=== PATIENT | male | born 1970 | race Caucasian/White ===

== ENCOUNTER 2017-11-16 19:13 | Emergency (ER) | payer OTHER ==
[2017-11-16 20:18] VITALS: BP 129/87
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
== END 2017-11-16 21:05 | disposition home or self-care (01) ==
LOC: UCCORT 19:13
DX: S60.221A Contusion of right hand, initial encounter (principal); S60.511A Abrasion of right hand, initial encounter; W23.0XXA Caught, crushed, jammed, or pinched between moving objects, initial encounter; Y93.E9 Activity, other interior property and clothing maintenance; Y92.9 Unspecified place or not applicable; Z88.0 Allergy status to penicillin
CPT/HCPCS: 99211; G0463

== ENCOUNTER 2018-11-01 15:49 | Emergency (ER) | payer OTHER ==
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
[2018-11-01 16:30] VITALS: BP 136/92
== END 2018-11-01 17:10 | disposition home or self-care (01) ==
LOC: UCCORT 15:49
DX: S93.402A Sprain of unspecified ligament of left ankle, initial encounter (principal); S90.02XA Contusion of left ankle, initial encounter; E11.9 Type 2 diabetes mellitus without complications; Z88.0 Allergy status to penicillin; Z91.018 Allergy to other foods; X58.XXXA Exposure to other specified factors, initial encounter; Y92.009 Unspecified place in unspecified non-institutional (private) residence as the place of occurrence of the external cause
CPT/HCPCS: 99211; G0463

== ENCOUNTER 2019-04-27 15:47 | Emergency (ER) | payer OTHER ==
--- OUTSIDE RECORDS SUMMARY | 2019-04-27 15:59 | XMS REPORT | Summary of Care ---
:1970 Author Organization [facility] Address [address] [place] [address] Care Team Providers Name Role Phone Bairon Orantes MD Primary Care Provider Reason for Visit Reason Comments Diabetes Encounter Details Date Type Department Care Team Description 04/07/2019 Office Visit [facility] Bairon Orantes MD Diabetes mellitus with microalbuminuria (HCC) (Primary Dx); Practice [address] [facility] Other specified hypothyroidism; [address] [place] [address] Essential (primary) [place] [address] [phone] Allergies Active Allergy Reactions Severity Noted Date Comments Mushrooms Swelling 08/26/2016 Penicillins Hives 08/26/2016 documented as of this encounter (statuses as of 04/07/2019) Medications Medication Sig Dispensed Refills Start Date End Date Status Blood Glucose Monitor 1 Each by Does not 1 Device 0 09/09/2016 Active Software Does not apply route apply Device DIRECTED. Diabetes. Brand: insurance preferred Glucose Blood In Vitro 1 Strip by In 100 Strip 5 09/09/2016 Active Strip Vitro route DIRECTED. DX: Diabetes Lancets Does not apply by Does not apply 100 Each 5 09/09/2016 Active Misc route. Test Blood Glucose time(s) A DAY Dx: Diabetes fluticasone (FLONASE) Harrison 2 Sprays in 1 Bottle 1 06/05/2018 Active 50 MCG/ACT Nasal nose DAILY. Suspension metFORMIN HCL 1000 MG Take 1 Tab by 180 Tab 0 03/30/2019 Active Oral TabIndications: mouth TWICE DAILY. Type 2 diabetes mellitus without complication, without long-term current use of insulin (HCC) levothyroxine Take 1 Tab by 90 Tab 0 03/30/2019 Active (SYNTHROID) 150 MCG mouth BEFORE Oral Tab BREAKFAST. Rosuvastatin Calcium Take 1 Tab by 90 Tab 1 03/30/2019 Active (CRESTOR) 10 MG Oral mouth DAILY. TabIndications: Type 2 diabetes mellitus without complication, without long-term current use of insulin (HCC) Dulaglutide Inject 0.5 mL 1.96 mL 2 04/07/2019 Active (TRULICITY) 0.75 beneath the skin MG/0.5ML Subcutaneous EVERY 7 DAYS. Solution Pen-injector lisinopril (PRINIVIL, Take 1 Tab by 90 Tab 0 04/07/2019 Active ZESTRIL) 10 MG Oral mouth DAILY. Tab documented as of this encounter (statuses as of 04/07/2019) Active Problems Problem Noted Date Diabetes mellitus with microalbuminuria 04/07/2019 Type 2 diabetes mellitus without complication 08/26/2016 Hypothyroidism High blood cholesterol level Essential (primary) hypertension documented as of this encounter (statuses as of 04/07/2019) Resolved Problems Problem Noted Date Resolved Date Diabetes mellitus type 2, without complication 08/26/2016 08/26/2016 documented as of this encounter (statuses as of 04/07/2019) Social History Tobacco Use Types Packs/Day Years Used Date Never Smoker Smokeless Tobacco: Never Used Alcohol Use Drinks/Week oz/Week Comments Yes occ Sex Assigned at Date Recorded Not on file Job Start Date Occupation Industry Not on file Not on file Not on file Travel History Travel Start Travel End No recent travel history available. documented as of this encounter Last Filed Vital Signs Vital Sign Reading Time Taken Comments Blood Pressure 144/92 04/07/2019 7:45 AM EDT Pulse 79 04/07/2019 7:45 AM EDT Temperature - - Respiratory Rate - - Oxygen Saturation - - Inhaled Oxygen Concentration - - Weight 90.7 kg (200 lb) 04/07/2019 7:45 AM EDT Height 172.7 cm (5' 8") 04/07/2019 7:45 AM EDT Body Mass Index 30.41 04/07/2019 7:45 AM EDT documented in this encounter Progress Notes Bairon Orantes MD - 04/07/2019 7:20 AM EDT PATIENT: Marino Florence : 1970 DATE OF SERVICE: 04/07/2019 CHIEF COMPLAINT: Chief Complaint Patient presents with Diabetes Subjective HISTORY OF PRESENT ILLNESS: Marino Florence is a 49-y.o. male. To the [facility] clinic to follow up his diabetes and hypothyroid. At last visit mentioned he wasnot compliant as forgot to take meds His a1c 10.7 TSH 40 and microalbumin + He has been back on the meds for a week and is helping him remember He occasionally forgets his night time metformin. Takes statin in AM His allergy symptoms better so not taking the meds He notes when he started on the thyroid med he feels his fuse is shorter but it historically gets better when on the med regularly . . Past Medical History: Diagnosis Date DDD (degenerative disc disease), lumbar Diabetes mellitus, type 2 (HCC) Essential (primary) hypertension High blood cholesterol level Hypothyroidism Family History Problem Relation Age of Onset Cancer Father cancer Diabetes Father Cancer Son brain Current Outpatient Medications Medication Sig Blood Glucose Monitor Software Does not apply Device 1 Each by Does not apply route DIRECTED. Diabetes. Brand: insurance preferred fluticasone (FLONASE) 50 MCG/ACT Nasal Suspension Harrison 2 Sprays in nose DAILY. Glucose Blood In Vitro Strip 1 Strip by In Vitro route DIRECTED. DX: Diabetes Lancets Does not apply Misc by Does not apply route. Test Blood Glucose time(s) A DAY Dx: Diabetes levothyroxine (SYNTHROID) 150 MCG Oral Tab Take 1 Tab by mouth BEFORE BREAKFAST. metFORMIN HCL 1000 MG Oral Tab Take 1 Tab by mouth TWICE DAILY. Rosuvastatin Calcium (CRESTOR) 10 MG Oral Tab Take 1 Tab by mouth DAILY. No current facility-administered medications for this visit. Allergies Allergen Reactions Mushrooms Swelling Penicillins Hives Social History Socioeconomic History Marital status: Spouse name: Not on file Number of children: Not on file Years of education: Not on file Highest education level: Not on file Occupational History Not on file Social Needs Financial resource strain: Not on file Food insecurity: Worry: Not on file Inability: Not on file Transportation needs: Medical: Not on file Non-medical: Not on file Tobacco Use Smoking status: Never Smoker Smokeless tobacco: Never Used Substance and Sexual Activity Alcohol use: Yes Comment: occ Drug use: No Sexual activity: Yes Partners: Female Lifestyle Physical activity: Days per week: Not on file Minutes per session: Not on file Stress: Not on file Relationships Social connections: Talks on phone: Not on file Gets together: Not on file Attends temple service: Not on file Active member of club or organization: Not on file Attends meetings of clubs or organizations: Not on file Relationship status: Not on file Intimate partner violence: Fear of current or ex partner: Not on file Emotionally abused: Not on file Physically abused: Not on file Forced sexual activity: Not on file Other Topics Concern Back Care Not Asked Bike Helmet Not Asked Blood Transfusions Not Asked Caffeine Concern Not Asked Exercise Not Asked Hobby Hazards Not Asked International Travel Not Asked Service Not Asked Occupational Exposure Not Asked Seat Belt Not Asked Self-Exams Not Asked Sleep Concern Not Asked Special Diet Not Asked Stress Concern Not Asked Weight Concern Not Asked Social History Narrative Not on file REVIEW OF SYSTEMS: ROS Objective PHYSICAL EXAM: VITALS: BP (!) 144/92 | Pulse 79 | Ht 5' 8" (1.727 m) | Wt 200 lb (90.7 kg) | BMI 30.41 kg/m Body mass index is 30.41 kg/m. Physical Exam Constitutional: No distress. Cardiovascular: Normal rate and regular rhythm. Pulmonary/Chest: Effort normal. No respiratory distress. Musculoskeletal: He exhibits no edema. Psychiatric: He has a normal mood and affect. Vitals reviewed. ASSESSMENT / IMPRESSION: ICD-9-CM ICD-10-CM 1. Diabetes mellitus with microalbuminuria (HCC) a1c of 10 may not be corrected with just metformin . We discussed options . Since he forgets to take meds 1 x a week trulicity may be best for him Warned of side effects 250.40 E11.29 791.0 R80.9 2. Other specified hypothyroidism his thyroid being off may have played a role in high a1c too. Cant really change dose due to long half life . See back couple months 244.8 E03.8 3. Essential (primary) hypertension 401.9 I10 BP usually good but due to + microalbumin will start isabell Plan Refusing flu shot Author: Bairon Orantes MD 04/07/2019 08:31 documented in this encounter Plan of Treatment Name Type Priority Associated Diagnoses Order Schedule GLYCOHEMOGLOBIN A1C Lab Routine Diabetes mellitus with Expected: microalbuminuria (HCC) 04/07/2019 (Approximate), Expires: 04/07/2020 COMPREHENSIVE METABOLIC Lab Routine Diabetes mellitus with Expected: PANEL microalbuminuria (HCC) 04/07/2019 (Approximate), Expires: 04/07/2020 THYROID STIMULATING Lab Routine Other specified Expected: HORMONE hypothyroidism 04/07/2019 (Approximate), Expires: 04/07/2020 Health Maintenance Due Date Last Done Comments Diabetic Eye Exam 1970 PNEUMOCOCCAL 0-64 YRS (1 of 02/10/1974 1 - PPSV23) DEPRESSION SCREENING 1980 HIV SCREENING 02/10/1983 FOOT EXAM 09/09/2017 09/09/2016, 09/09/2016 COLONOSCOPY SCREENING 02/10/2018 ZOSTER IMMUNIZATION SERIES 02/10/2018 (1 of 2) INFLUENZA VACCINE (#1) 2019 HEMOGLOBIN A1C 06/26/2019 03/26/2019, 07/18/2017, 04/02/2017, Additional history exists URINE MICROALBUMIN 03/26/2020 03/26/2019, 07/18/2017, 09/09/2016 LIPID DISORDER SCREENING 03/30/2020 03/30/2019, 03/26/2019, 12/06/2016, Additional history exists HPV IMMUNIZATION SERIES Aged Out No longer eligible based on patient's age to complete this topic MENINGOCOCCAL VACCINE IMM Aged Out No longer eligible based on patient's age to complete this topic documented as of this encounter Goals Goal Patient Goal Associated Recent Patient-Stated? Author Type Problems Progress Blood Pressure Blood Pressure 144/92 No Marisol, < 140/90 (04/07/2019 Sonia, 7:45 AM EDT) Note: This is an individualized treatment (blood pressure) goal for Marino Florence: Displayed above (on the left) is your goal for blood pressure control. Your most recent blood pressure is also shown above, on the right. You should try to achieve blood pressures that are lower than your goal listed above (on the left). Glycohemoglobin A1c < 7.0 Diabetes 10.7 (03/26/2019 6:38 No Sonia Damon, AM EDT) Note: This is an individualized treatment (diabetes control, HgbA1C) goal for Marino Florence: Displayed above is your progress towards your HgbA1C goal. Your goal is shown above (on the left); your most recent HgbA1C is shown on the right. Note that lower numbers are better. Weight loss vs. 18 mo Lifestyle 9 (04/07/2019 7:45 AM No Sonia Damon MD max (lbs) >= 10 EDT) Note: This is an individualized lifestyle goal for Marino Florence: Your body mass index (BMI) is more than 30. You should lose weight. A reasonable starting goal is to lose 10 pounds. Displayed above is how many pounds you have lost thus far towards your 10 pound weight loss goal. Keep immunizations current Lifestyle No Sonia Damon MD Note: This is an individualized lifestyle goal for Marino Florence: Please be sure to keep up-to-date on recommended immunizations. For example, this would include a yearly influenza vaccine. Immunization status can be seen by looking at the Health Maintenance sections of your [facility], Plan of Care, and any After Visit Summaries. Take all prescribed medications as Self-management No Sonia Damon MD directed Note: This is an individualized self-management goal for Marino Florence: Please take all prescribed medications as directed. 1. Do not skip doses. If you cannot afford your medications, talk with your doctor. 2. Use a pill reminder system such as a pill box if needed. Your pharmacist can help you with this. 3. Contact your Pharmacy 5 days before your medication runs out. If you cannot take your medications for any reasons, talk with your doctor. 4. Please bring all of your medication bottles and inhalers (or a list of all your medications/inhalers) with you to every visit. Potential barriers to meeting all of your care plan goals will continue to be addressed on an ongoing basis. documented as of this encounter Results Not on filedocumented in this encounter Visit Diagnoses Diagnosis Diabetes mellitus with microalbuminuria (HCC) - Primary Other specified hypothyroidism Essential (primary) hypertension Unspecified essential hypertension documented in this encounter
[2019-04-27 16:04] VITALS: BP 123/85
[2019-04-27] MEDS ORDERED: Albuterol HFA INHALER* 8 gm MDI INH ONE (16:32)
--- NOTE | 2019-04-27 16:40 | UC ---
Respiratory Complaint HPI - HPI Summary HPI Summary: The patient is a 49-year-old diabetic that has been ill for greater than a week and a half. Initially his symptoms started up with nasal congestion and postnasal drip. His symptoms rapidly worsened and the cough seems to be in his chest now. He has some chest tightness and wheezing. The patient does have a history of bronchitis and has used inhalers in the past. He denies any high fever or shaking chills. He denies any chest pain or shortness. He has had no nausea vomiting or diarrhea. He does have a mild sore throat. - History of Current Complaint Chief Complaint: UCRespiratory Stated Complaint: URI Time Seen by Provider: 04/27/19 16:26 Hx Obtained From: Patient Onset/Duration: Gradual Onset, Lasting Weeks Timing: Constant Severity Initially: Mild Severity Currently: Moderate Pain Intensity: 2 Pain Scale Used: 0-10 Numeric Character: Cough: Productive Aggravating Factors: Nothing Alleviating Factors: Nothing Associated Signs And Symptoms: Positive: Wheezing, Nasal Congestion, Sinus Discomfort Related History: Similar Episode/Dx as: - bronchitis - Allergies/Home Medications Allergies/Adverse Reactions: Allergies Allergy/AdvReac Type Severity Reaction Status Date / Time Penicillins Allergy Hives Verified 04/27/19 16:04 MUSHROOMS Allergy FACIAL Uncoded 11/01/18 16:30 EDEMA AND REDNESS Home Medications: Home Medications Dulaglutide [Trulicity] 0.75 mg PO DAILY 04/27/19 [History Confirmed 04/27/19] Lisinopril TAB* [Prinivil TAB 10 MG*] 10 mg PO DAILY 04/27/19 [History Confirmed 04/27/19] PMH/Surg Hx/FS Hx/Imm Hx Previously Healthy: Yes Endocrine History: Diabetes, Dyslipidemia Cardiovascular History: Hypertension Respiratory History: Bronchitis Other History Of: Negative For: HIV, Hepatitis B, Hepatitis C, Anticoagulant Therapy - Surgical History Surgical History: Yes Surgery Procedure, Year, and Place: APPENDECTOMY 2007, [facility] [place] [facility]. LEFT KNEE, 1993, [facility]. LEFT THUMB, [facility], 2001. LEFT TRIGGER THUMB SX --2013 - Family History Known Family History: Positive: Hypertension Negative: Cardiac Disease - Social History Alcohol Use: Rare Alcohol Amount: 2-3 PER WEEK Substance Use Type: None Smoking Status (MU): Never Smoked Tobacco Have You Smoked in the Last Year: No - Immunization History Most Recent Influenza Vaccination: none Review of Systems All Other Systems Reviewed And Are Negative: Yes Constitutional: Positive: Negative Skin: Positive: Negative Eyes: Positive: Negative ENT: Positive: Sore Throat, Nasal Discharge, Sinus Congestion, Sinus Pain/ Tenderness Respiratory: Positive: Cough, Other - wheezing Cardiovascular: Positive: Negative Gastrointestinal: Positive: Negative Genitourinary: Positive: Negative Motor: Positive: Negative Neurovascular: Positive: Negative Musculoskeletal: Positive: Negative Neurological: Positive: Negative Physical Exam Triage Information Reviewed: Yes Appearance: Well-Appearing, No Pain Distress, Well-Nourished Vital Signs: Initial Vital Signs Temp 98.4 F 04/27/19 15:59 Pulse 80 04/27/19 15:59 Resp 18 04/27/19 15:59 BP 123/85 04/27/19 15:59 Pulse Ox 98 04/27/19 15:59 Vital Signs Reviewed: Yes Eyes: Positive: Conjunctiva Clear ENT: Positive: Hearing grossly normal, Pharyngeal erythema, Nasal congestion, TMs normal, Sinus tenderness - mild, Uvula midline. Negative: Tonsillar swelling, Tonsillar exudate, Trismus, Muffled voice, Hoarse voice, Dental tenderness Dental: Positive: Other: - edentulous Neck: Positive: Supple, Nontender, No Lymphadenopathy Respiratory: Positive: Normal breath sounds, No respiratory distress, No accessory muscle use, Other: - bronchospastic cough, wheezing with forced expiration Cardiovascular: Positive: RRR Musculoskeletal: Positive: ROM Intact, No Edema Neurological: Positive: Alert Psychological Exam: Normal Respiratory Course/Dx - Differential Dx/Diagnosis Provider Diagnosis: Acute bronchitis with bronchospasm Discharge ED - Sign-Out/Discharge Documenting (check all that apply): Patient Departure All imaging exams completed and their final reports reviewed: No Studies - Discharge Plan Condition: Stable Disposition: HOME Prescriptions: Azithromycin TAB* [Zithromax TAB*] 250 mg PO DAILY #6 tab Patient Education Materials: Acute Bronchitis (ED), How to Use a Metered-Dose Inhaler and a Spacer (ED) Forms: *Work Release Referrals: Bairon Orantes MD [Primary Care Provider] - 5 Days (if not better ) - Billing Disposition and Condition Condition: STABLE Disposition: Home
== END 2019-04-27 16:53 | disposition home or self-care (01) ==
LOC: UCEAST 15:47
DX: J20.9 Acute bronchitis, unspecified (principal); E11.9 Type 2 diabetes mellitus without complications; E78.5 Hyperlipidemia, unspecified; I10 Essential (primary) hypertension; Z88.0 Allergy status to penicillin
CPT/HCPCS: 99212; A9270-GY; G0463

== ENCOUNTER 2019-08-19 16:07 | Emergency (ER) | payer OTHER ==
[2019-08-19 17:13] VITALS: BP 129/85
--- NOTE | 2019-08-19 17:21 | UC ---
Throat Pain/Nasal Ravi HPI - HPI Summary HPI Summary: 49-year-old male who has had sinus symptoms for 5 days. He has a history of sinusitis, he also complains of a right earache. - History of Current Complaint Chief Complaint: UCRespiratory Stated Complaint: SINUS PRESSURE Time Seen by Provider: 08/19/19 17:17 Hx Obtained From: Patient Onset/Duration: Gradual Onset, Lasting Days Severity: Mild Pain Intensity: 3 Cough: None Associated Signs & Symptoms: Positive: Sinus Discomfort, Nasal Discharge - Allergies/Home Medications Allergies/Adverse Reactions: Allergies Allergy/AdvReac Type Severity Reaction Status Date / Time Penicillins Allergy Hives Verified 08/19/19 17:07 MUSHROOMS Allergy FACIAL Uncoded 08/19/19 17:07 EDEMA AND REDNESS Home Medications: Home Medications Empagliflozin [Jardiance] 1 tab DAILY 08/19/19 [History Confirmed 08/19/19] PMH/Surg Hx/FS Hx/Imm Hx Previously Healthy: Yes Endocrine History: Diabetes, Thyroid Disease Cardiovascular History: Hypertension Other History Of: Negative For: HIV, Hepatitis B, Hepatitis C, Anticoagulant Therapy - Surgical History Surgical History: Yes Surgery Procedure, Year, and Place: APPENDECTOMY 2007, [facility] [place] [facility]. LEFT KNEE, 1993, [facility]. LEFT THUMB, [facility], 2001. LEFT TRIGGER THUMB SX --2013 - Family History Known Family History: Positive: Hypertension Negative: Cardiac Disease - Social History Occupation: Employed Full-time Alcohol Use: Rare Alcohol Amount: 2-3 PER WEEK Substance Use Type: None Smoking Status (MU): Never Smoked Tobacco Have You Smoked in the Last Year: No - Immunization History Most Recent Influenza Vaccination: none Review of Systems All Other Systems Reviewed And Are Negative: Yes ENT: Positive: Ear Ache - Right earache, Nasal Discharge - Greenish yellow coryza, Sinus Congestion, Sinus Pain/Tenderness Is Patient Immunocompromised?: No Physical Exam Triage Information Reviewed: Yes Appearance: Well-Appearing, No Pain Distress, Well-Nourished Vital Signs: Initial Vital Signs Temp 97.7 F 08/19/19 17:09 Pulse 85 08/19/19 17:09 Resp 16 08/19/19 17:09 BP 129/85 08/19/19 17:09 Pulse Ox 96 08/19/19 17:09 Vital Signs Reviewed: Yes Eyes: Positive: Conjunctiva Clear ENT: Positive: Pharynx normal - Light yellow post nasal drainage., Nasal congestion - Inflamed turbinates right side with some yellow purulent coryza, Nasal drainage, TMs normal, Sinus tenderness - Tender over the maxillary sinuses bilaterally, Uvula midline Neck: Positive: Supple, Nontender, No Lymphadenopathy Respiratory: Positive: Lungs clear, Normal breath sounds, No respiratory distress, No accessory muscle use Cardiovascular: Positive: RRR, No Murmur, Pulses Normal, Brisk Capillary Refill Musculoskeletal Exam: Normal Neurological Exam: Normal Psychological Exam: Normal Skin Exam: Normal Throat Pain/Nasal Course/Dx - Course Course Of Treatment: Patient is comfortable here. His ear exam is completely normal. I did advise him more likely this is viral and does not need an antibiotic however because of his history of sinus infections he prefers an antibiotic. - Differential Dx/Diagnosis Provider Diagnosis: Sinusitis Discharge ED - Sign-Out/Discharge Documenting (check all that apply): Patient Departure All imaging exams completed and their final reports reviewed: No Studies - Discharge Plan Condition: Good Disposition: HOME Prescriptions: DOXYcycline CAP(*) [DOXYcycline 100MG CAP(*)] 100 mg PO BID 10 Days #20 cap Patient Education Materials: Sinusitis (ED) Referrals: Bairon Orantes MD [Primary Care Provider] - Additional Instructions: Increase fluids, no dairy products, antacids or multivitamins 2 hours prior to taking the doxycycline and 2 hours after, however take it with food. With your primary care provider if no improvement in 5-7 days. - Billing Disposition and Condition Condition: GOOD Disposition: Home - Attestation Statements Provider Attestation: This patient was not seen by me I was available for consult Chart reviewed MICHEAL
== END 2019-08-19 17:32 | disposition home or self-care (01) ==
LOC: UCCORT 16:07
DX: J32.9 Chronic sinusitis, unspecified (principal); E11.9 Type 2 diabetes mellitus without complications; I10 Essential (primary) hypertension; Z79.84 Long term (current) use of oral hypoglycemic drugs; Z88.0 Allergy status to penicillin; Z91.018 Allergy to other foods
CPT/HCPCS: 99212; G0463